=== PATIENT | female | born 1995 ===

== ENCOUNTER 2017-11-25 11:58 | Emergency (ER) | payer MEDICAID ==
[2017-11-25 12:16] VITALS: BP 131/67
--- NOTE | 2017-11-25 13:00 | Emergency Department Report ---
ED HPI - General Chief complaint: OB/Uterine Contractions Stated complaint: CARE Time Seen by Provider: 11/25/17 12:53 Source: patient Mode of arrival: Ambulatory Limitations: No Limitations - History of Present Illness Initial comments: 22-year-old [place] female reports being 4 months under the care of Dr. Kirby/Dev at [facility]. Was last seen 2 months ago, presents to the emergency department seeking ultrasound of her baby. Chief complaint says she feels no movement, but the patient has confirmed that this is not the case. Mrs. Allen reports feeling movement in her pelvic area, however, does not know what the baby looks like. She primarily came because she wanted to be able to see her baby and get a picture printout of the baby. She reports no abdominal pain, back pain, flank pain, nausea, vomiting, dysuria, diarrhea, chest pain, palpitations, presyncope, sudden loss of vaginal fluid. - Related Data Allergies Allergy/AdvReac Type Severity Reaction Status Date / Time No Known Allergies Allergy Verified 11/25/17 12:11 ED Review of Systems ROS: Stated complaint: CARE Other details as noted in HPI Constitutional: denies: chills, fever Eyes: denies: eye pain, eye discharge, vision change ENT: denies: ear pain, throat pain Respiratory: denies: cough, shortness of breath, wheezing Cardiovascular: denies: chest pain, palpitations Endocrine: no symptoms reported Gastrointestinal: denies: abdominal pain, nausea, diarrhea Genitourinary: denies: urgency, dysuria, discharge Musculoskeletal: denies: back pain, joint swelling, arthralgia Skin: denies: rash, lesions Neurological: denies: headache, weakness, paresthesias Psychiatric: denies: anxiety, depression Hematological/Lymphatic: denies: easy bleeding, easy bruising ED Past Medical Hx - Past Medical History Previous Medical History?: No - Surgical History Past Surgical History?: No Additional Surgical History: C SECTION - Social History Smoking Status: Never Smoker Substance Use Type: None ED Physical Exam - General Limitations: No Limitations General appearance: alert, in no apparent distress - Head Head exam: Present: atraumatic, normocephalic - Eye Eye exam: Present: normal appearance, PERRL, EOMI - ENT ENT exam: Present: mucous membranes moist - Neck Neck exam: Present: normal inspection - Respiratory Respiratory exam: Present: normal lung sounds bilaterally. Absent: respiratory distress - Cardiovascular Cardiovascular Exam: Present: regular rate, normal rhythm. Absent: systolic murmur, diastolic murmur, rubs, gallop - GI/Abdominal GI/Abdominal exam: Present: soft, normal bowel sounds - Extremities Exam Extremities exam: Present: normal inspection - Back Exam Back exam: Present: normal inspection - Neurological Exam Neurological exam: Present: alert, oriented X3 - Psychiatric Psychiatric exam: Present: normal affect, normal mood - Skin Skin exam: Present: warm, dry, intact, normal color. Absent: rash ED Course Vital Signs 11/25/17 12:11 Temperature 97.8 F Pulse Rate 63 Respiratory 16 Rate Blood Pressure 131/67 O2 Sat by Pulse 96 Oximetry - Consultations Consultation #1: 11/25/17 14:05 Case discussed with with Dr. Gonzalez. Plan will be to obtain hCG quantitative level ED Medical Decision Making - Medical Decision Making Discussed the findings of the ultrasound with Ms. allen who began to grow, confused of the report. She reports her last menstrual period was, again, in August, however, she reports having had 2 negative tests in the last 2 the last being 2 days ago. She says she has seen [place] movement, so something must be going on in the abdomen, although she denies any pain, vaginal bleeding , vaginal discharge, back pain, nausea, vomiting. She is alert and oriented, no paranoia, no hallucinations, her GCS is 15, not suicidal or homicidal Critical care attestation.: If time is entered above; I have spent that time in minutes in the direct care of this critically ill patient, excluding procedure time. ED Disposition Clinical Impression: Elevated serum hCG in female, not Disposition: DC-01 TO HOME OR SELFCARE Is pt being admited?: No Does the pt Need Aspirin: No Condition: Stable Referrals: PRIMARY MD BRITTNEE [Primary Care Provider] - 3-5 Days [facility] [Provider Group] - 11/27/17 (Follow-up in 2 days for reevaluation of her hCG levels) GIO WANG MD [Staff Physician] - 11/27/17 (Follow-up in 2 days for reevaluation of your hCG levels)
--- NOTE | 2017-11-25 13:53 | Ultrasound Report ---
FINAL REPORT EXAM: US OB < = 14 WEEKS FETUS HISTORY: , states no movement , positive qualitative test, quantitative hCG not drawn, maternal history reports clinical age 12 weeks 5 days TECHNIQUE: Ultrasound evaluation of the pelvis using TRANSABDOMINAL technique PRIORS: Transvaginal pelvic ultrasound 11/25/2017 FINDINGS: Normal-appearing uterus measuring 9.7 x 5.9 x 5.9 cm. Homogeneous endometrium with 10.4 mm thickness. The no evidence of endometrial gestational sac or intrauterine . Several vaginal cysts appear simple and may be Gilda's duct cysts. These measure 20 mm, 15 mm, and 9 mm, respectively. No definite cul-de-sac free fluid. Ovarian/adnexal blood flow is noted. Right ovary measures 4.4 x 2.5 x 3.2 cm. Small hypoechoic focus measures 27 mm and may be a corpus luteum. Left ovary measures 2.8 x 2.1 x 2.0 cm. IMPRESSION: No sonographic evidence of acute pelvic pathology or intrauterine/extrauterine Small hypoechoic right ovarian focus may be a corpus luteum
--- NOTE | 2017-11-25 13:57 | Ultrasound Report ---
FINAL REPORT EXAM: US OB TRANSVAGINAL HISTORY: , states no movement , positive qualitative test, quantitative hCG not drawn, maternal history reports clinical age 12 weeks 5 days TECHNIQUE: Ultrasound evaluation of the pelvis using TRANSVAGINAL technique PRIORS: None. FINDINGS: Normal-appearing uterus measuring 9.7 x 5.9 x 5.9 cm. Homogeneous endometrium with 10.4 mm thickness. The no evidence of endometrial gestational sac or intrauterine . Several vaginal cysts appear simple and may be Gilda's duct cysts. These measure 20 mm, 15 mm, and 9 mm, respectively. No definite cul-de-sac free fluid. Ovarian/adnexal blood flow is noted. Right ovary measures 4.4 x 2.5 x 3.2 cm. Small hypoechoic focus measures 27 mm and may be a corpus luteum. Left ovary measures 2.8 x 2.1 x 2.0 cm. IMPRESSION: No sonographic evidence of acute pelvic pathology or intrauterine/extrauterine Small hypoechoic right ovarian focus may be a corpus luteum
== END 2017-11-25 16:27 | disposition home or self-care (01) ==
LOC: ED 11:58
DX: R79.89 Other specified abnormal findings of blood chemistry (principal)
CPT/HCPCS: 36415; 76801; 76817; 84702; 84703